=== PATIENT | male | born 1935 | race Caucasian/White ===

== ENCOUNTER 2020-06-20 08:30 | Observation (INO) | payer MEDICARE ==
[2020-06-20] MEDS ORDERED: SODIUM CHLORIDE IRRI 1000 ML 1 ML, .VANCOMYCIN VIAL 1,000 MG IR ONE (09:04)
[2020-06-20 09:24] LABS: Basophils # (Auto) 0.1 K/mm3 (0.0-0.1); Basophils % (Auto) 0.9 % (0.0-1.8); Eosinophils # (Auto) 0.2 K/mm3 (0.0-0.4); Eosinophils % (Auto) 2.3 % (0.0-4.3); Hematocrit 40.4 % (35.5-45.6); Hemoglobin 13.7 gm/dl (11.8-15.2); Lymphocytes # (Auto) 1.6 K/mm3 (1.2-5.4); Mean Corpuscular HGB Conc 34 % (32-34); Mean Corpuscular Volume 88 fl (84-94); Monocytes # (Auto) 0.6 K/mm3 (0.0-0.8); Monocytes % (Auto) 8.6 % (0.0-7.3); Platelet Count 244 K/mm3 (140-440); Red Cell Distribution Width 14.9 % (13.2-15.2)
[2020-06-20 09:36] LABS: INR 1.05 (0.87-1.13)
[2020-06-20 09:37] LABS: Partial Thromboplastin Time 33.1 Sec. (24.2-36.6)
[2020-06-20 09:40] LABS: Alanine Aminotransferase 16 units/L (7-56); Albumin 4.1 g/dL (3.9-5); BUN/Creatinine Ratio 14; Blood Urea Nitrogen 11 mg/dL (9-20); Calcium 9.3 mg/dL (8.4-10.2); Hemolysis Index 18
[2020-06-20] MEDS ORDERED: propofoL 200 MG/20 ML VIAL IV ONE ×3 (09:45)
[2020-06-20] MEDS ORDERED: HYDROmorphone 1 MG/1 ML INJ ONE (09:48)
[2020-06-20] MEDS ORDERED: MIDAZOLAM 2 MG/2 ML INJ ONE (09:48)
[2020-06-20] MEDS ORDERED: SODIUM CHLORIDE 0.45% 1000 ML 1,000 ML IV SCH (10:00)
[2020-06-20] MEDS ORDERED: ceFAZolin/Water 2 GM/20 ML 2 GM/20 ML SYRINGE IV NR (10:00)
--- NOTE | 2020-06-20 10:06 | Anesthesia Consultation ---
Anesthesia Consult and Med Hx Date of service: 06/20/20 - Airway Anesthetic Teeth Evaluation: Good ROM Head & Neck: Adequate Mental/Hyoid Distance: Adequate Mallampati Class: Class II Intubation Access Assessment: Probably Good - Pre-Operative Health Status ASA Pre-Surgery Classification: ASA3 Proposed Anesthetic Plan: MAC - Pulmonary Hx Smoking: Yes (quit over 20yrs ago) Hx Asthma: No Hx Respiratory Symptoms: No SOB: No COPD: No Home Oxygen Therapy: No Hx Pneumonia: No Hx Sleep Apnea: Yes - Cardiovascular System Hx Hypertension: Yes Hx Coronary Artery Disease: Yes (CABG 2003) Hx Heart Attack/AMI: No Hx Angina: No Hx Percutaneous Transluminal Coronary Angioplasty (PTCA): No Hx Cardia Arrhythmia: Yes (A-Fib) Hx Pacemaker: No Hx Internal Defibrillator: No Hx Valvular Heart Disease: No Hx Heart Murmur: No Hx Peripheral Vascular Disease: No - Central Nervous System Hx Neuromuscular Disorder: No Hx Seizures: No CVA: No Hx Back Pain: No Hx Psychiatric Problems: No - Gastrointestinal Hx Ulcer: No Hx Gastroesophageal Reflux Disease: No - Endocrine Hx Renal Disease: No Hx End Stage Renal Disease: No Hx Cirrhosis: No Hx Liver Disease: No Hx Insulin Dependent Diabetes: No Hx Non-Insulin Dependent Diabetes: No Hx Thyroid Disease: No Hx Hypothyroidism: No Hx Hyperthyroidism: No - Hematic Hx Anemia: No Hx Sickle Cell Disease: No - Other Systems Hx Alcohol Use: No Hx Substance Use: No Hx Cancer: No Hx Obesity: No
--- NOTE | 2020-06-20 10:08 | Anesthesia Day of Surgery ---
Anesthesia Day of Surgery - Day of Surgery Patient Examined: Yes Patient H&P Reviewed: Yes Patient is NPO: Yes
[2020-06-20] MEDS ORDERED: SODIUM CHLORIDE IRRI 500 ML 500 ML IR ONE (10:16)
[2020-06-20] MEDS ORDERED: ceFAZolin/Water 2 GM/20 ML 2 GM/20 ML SYRINGE IV ONE (10:17)
[2020-06-20] MEDS ORDERED: SODIUM CHLORIDE 0.9% 1000 ML 1,000 ML ONE (10:22)
[2020-06-20] MEDS: BUPIVACAINE/PF (0.5%) 5 MG/1 ML 30 ML VIAL INFILTRATI ONE ×4 (11:06→12:18)
[2020-06-20] MEDS: LIDOCAINE (1%) 10 MG/1 ML VIAL 20 ML MDV ONE ×5 (11:06→16:00)
[2020-06-20] MEDS ORDERED: .VANCOMYCIN VIAL 1,000 MG in SODIUM CHLORIDE IRRI 1000 ML 1,000 ML IRRIGATION ONE ×2 (11:15→11:55)
[2020-06-20] MEDS ORDERED: HYDROcodone/ACETAMINOPHEN 5-325 MG TAB PO PRN (12:37)
--- NOTE | 2020-06-20 13:35 | XRay Report ---
CHEST 1 VIEW INDICATION: ppm. COMPARISON: None FINDINGS: Support devices: A single lead pacemaker has been inserted which terminates in the right ventricle. Heart: Within normal limits. Lungs/Pleura: No acute air space or interstitial disease. No pneumothorax. Additional findings: None. IMPRESSION: No acute findings. Signer Name: Deondre Nix Jr, MD Signed: 06/20/2020 1:31 PM Workstation Name: [id number]
--- NOTE | 2020-06-20 15:22 | Post Anesthesia Evaluation ---
- Post Anesthesia Evaluation Patient Participated: Yes Airway Patent: Yes Stable Respiratory Function: Yes Nausea/Vomiting: No Temp > 96.8F: Yes Pain Manageable: Yes Adequeate Hydration: Yes Anesthesia Complications: No
--- NOTE | 2020-06-20 17:40 | Event Note ---
Date: 06/20/20 Patient underwent PPM insertion in left subclavian area using percutaneous technique and single ventricular lead placed without difficulty,procedure was uncomplicated. Also loop recorder was removed with out difficulty. Patient will be monitored overnight,if stable,d/c in AM.
[2020-06-20] MEDS ORDERED: cloNIDine 0.1 MG TAB PO PRN (17:58)
[2020-06-20] MEDS ORDERED: METOPROLOL TARTRATE 50 MG TAB PO SCH (22:00)
[2020-06-20] MEDS ORDERED: APIXABAN 5 MG TAB PO SCH (22:00)
[2020-06-21 08:58] VITALS: BP 141/65
--- NOTE | 2020-06-21 09:14 | Short Stay Summary ---
Short Stay Documentation Date of service: 06/21/20 - History H&P: obtained from office - Allergies and Medications Current Medications: Allergies No Known Allergies Allergy (Verified 06/20/20 09:04) Home Medications Medication Instructions Recorded Confirmed Last Taken Type Apixaban [Eliquis] 5 mg PO BID 06/20/20 06/20/20 06/17/20 History 1 tab Aspirin [Aspirin BABY CHEW TAB] 81 mg PO QDAY 06/20/20 06/20/20 Unknown History Folic Acid [Folvite] 1 mg PO QDAY 06/20/20 06/20/20 Unknown History Losartan [Cozaar] 50 mg PO DAILY 06/20/20 06/20/20 06/20/20 06:00 History 1 tab Rosuvastatin Calcium 10 mg PO DAILY 06/20/20 06/20/20 06/19/20 History 1 tab Active Medications Acetaminophen/Hydrocodone Bitart ([place]incoln 5/325) 1 each PO Q6H PRN PRN Reason: Pain, Moderate (4-6) Apixaban (Eliquis) 5 mg PO Q12HR JORDYN; Protocol Last Admin: 06/20/20 22:15 Dose: 5 mg Documented by: Clonidine HCl (Catapres) 0.1 mg PO Q4H PRN PRN Reason: Hypertension Sodium Chloride (Nacl 0.45% 1000 Ml) 1,000 mls @ 50 mls/hr IV DIRECT JORDYN Last Admin: 06/20/20 10:25 Dose: 50 mls/hr Documented by: Losartan Potassium (Cozaar) 50 mg PO DAILY [facility] Metoprolol Tartrate (Metoprolol) 50 mg PO BID [facility] Stop: 06/30/20 21:59 Last Admin: 06/20/20 22:15 Dose: 50 mg Documented by: - Physical exam General appearance: no acute distress Integumentary: no rash, no growths, no abnormal pigmentation, other (left pectoralis PPM implantation site pressure dressing removed, site covered with telfa and tegaderm dressing, dressing with minimal amount of old blood noted, no current bleeding or hematoma noted) HEENT: Atraumatic, PERRLA, EOMI Lungs: Clear to auscultation Heart: Normal S1, Normal S2 Gastrointestinal: normal, normoactive bowel sounds Extremities: no ischemia, pulses intact, pulses symmetrical Neurological: Normal gait, Normal speech, Strength at 5/5 X4 ext - Brief post op/procedure progress note Date of procedure: 06/20/20 Pre-op diagnosis: bradycardia Post-op diagnosis: same Procedure: PPM implantation Estimated blood loss: none Condition: stable - Hospital course Hospital course: Pt presented for scheduled elective PPM implantation and subsequently successfully underwent the procedure. He was admitted for observation overnight. Post-procedure CXR with NAF, no pneumothorax. Device interrogation this AM showed normal device function. Pt has remained clinically and hemodynamically stable throughout procedure and recovery and is medically stable for discharge today. - Disposition Condition at discharge: Good Disposition: [id number] TO HOME OR SELFCARE - Discharge Diagnoses (1) Cardiac pacemaker in situ Status: Chronic (2) Atrial fibrillation Status: Chronic (3) CAD (coronary artery disease) Status: Chronic (4) History of coronary artery bypass graft Status: Chronic (5) HTN (hypertension) Status: Chronic (6) Hyperlipidemia Status: Chronic Short Stay Discharge Plan Activity: other (as per discharge instructions ) Diet: low fat, low cholesterol, low salt Wound: other (as per discharge instructions) Follow up with: KAREN LARA MD [Staff Physician] - 7 Days (07/01/2020 @ 2:30PM for post-op wound check, [facility] office 07/11/2020 @ 2:45PM for f/u with [facility] ) Prescriptions: Metoprolol [Lopressor TAB] 50 mg PO BID #60 tablet HYDROcodone/APAP 5-325 [Lincoln 5/325] 1 each PO Q6HR PRN #10 tablet PRN Reason: Pain
[2020-06-21 09:27] LABS: Basophils % (Auto) 0.4 % (0.0-1.8); Eosinophils % (Auto) 0.4 % (0.0-4.3); Hematocrit 42.2 % (35.5-45.6); Hemoglobin 14.4 gm/dl (11.8-15.2); Lymphocytes # (Auto) 1.1 K/mm3 (1.2-5.4); Lymphocytes % (Auto) 11.8 % (13.4-35.0); Mean Corpuscular HGB Conc 34 % (32-34); Mean Corpuscular Volume 87 fl (84-94); Monocytes # (Auto) 0.7 K/mm3 (0.0-0.8); Monocytes % (Auto) 7.4 % (0.0-7.3); Platelet Count 225 K/mm3 (140-440); Red Blood Count 4.83 M/mm3 (3.65-5.03); Red Cell Distribution Width 14.5 % (13.2-15.2)
[2020-06-21] MEDS ORDERED: LOSARTAN 50 MG TAB PO SCH (10:00)
--- NOTE | 2020-06-21 11:03 | Cardiac Catherization Report ---
LOOP RECORDER REMOVAL INDICATION FOR PROCEDURE: The patient is an 85-year-old gentleman with history of aortocoronary bypass surgery and underlying atrial fibrillation with slow ventricular response, has a loop recorder inserted approximately a day ago for followup of episodes of dizziness. Presently a permanent pacemaker is inserted because of atrial fibrillation with slow ventricular response. Because of insertion of permanent pacemaker and pacemaker being in place, it was decided to remove the loop recorder. The patient is already having a deep sedation by pcat instructor. Local anesthesia was given over the left chest area around the loop recorder. A small incision was given using 11 blade. Loop recorder was squeezed out without difficulty. No evidence of infection or inflammation noted. Small incision was closed with 3-0 Vicryl and good hemostasis was achieved. As mentioned above, the patient has a pacemaker inserted during the same procedure. FINAL IMPRESSION: Uncomplicated removal of the loop recorder in the left chest area. JOB# [id number] MARGUERITE/MICHELLE [id number]
== END 2020-06-21 11:24 | disposition home or self-care (01) ==
LOC: CATHLABREC 08:30 → 4A 11:18
PROVIDERS: ADMIT Internal Medicine; ATTEND Internal Medicine
DX: I48.19 Other persistent atrial fibrillation (principal); R42 Dizziness and giddiness; I25.10 Atherosclerotic heart disease of native coronary artery without angina pectoris; I35.1 Nonrheumatic aortic (valve) insufficiency; E78.2 Mixed hyperlipidemia; I10 Essential (primary) hypertension; Z95.1 Presence of aortocoronary bypass graft; Z95.0 Presence of cardiac pacemaker; Z79.82 Long term (current) use of aspirin; Z79.01 Long term (current) use of anticoagulants; Z79.899 Other long term (current) drug therapy
CPT/HCPCS: 33207; 33286; 36415; 71045; 80053; 84132; 85025; 85610; 85730; 87641; 93005; 96361; 96374; C1786; C1892; C1898; G0378; J0690; J1170; J2250; J2704; J3370; J7030; Q9967